=== PATIENT | female | born 1950 | race Caucasian/White ===

== ENCOUNTER → 2017-07-01 | Emergency (ER) | payer MEDICARE, BC ==
[~2017-07-01] VITALS: Ht 167.6 cm; Wt 161.0 kg
[~2017-07-01] MED LIST: ALBU8.5H8 INH; ASPI81TA30 PO; CYCL-1 PO; FAMO20TA8 PO; FOSI40TA2 PO; FURO-149 PO; LACT1CAP26 PO; METO-395 PO; POTA10TA19 PO
[2017-07-01 23:34] VITALS: BP 160/79
== END | disposition home or self-care (01) ==
LOC: ER 23:12
DX: J22 Unspecified acute lower respiratory infection (principal); I10 Essential (primary) hypertension; K21.9 Gastro-esophageal reflux disease without esophagitis; Z90.710 Acquired absence of both cervix and uterus; Z90.49 Acquired absence of other specified parts of digestive tract; Z87.891 Personal history of nicotine dependence; Z88.0 Allergy status to penicillin; Z88.2 Allergy status to sulfonamides; Z88.1 Allergy status to other antibiotic agents
CPT/HCPCS: 99284

== ENCOUNTER 2018-03-23 09:30 | Day surgery (SDC) | payer MEDICARE, BC ==
[~2018-03-23 09:30] MED LIST changes: -FOSI40TA2 PO; +FOSI40TA4 PO
== END 2018-03-23 11:51 | disposition home or self-care (01) ==
LOC: WOUND CARE 09:30
PROVIDERS: ATTEND Surgery
DX: I83.022 Varicose veins of left lower extremity with ulcer of calf (principal); L97.221 Non-pressure chronic ulcer of left calf limited to breakdown of skin; I10 Essential (primary) hypertension; K21.9 Gastro-esophageal reflux disease without esophagitis; Z87.891 Personal history of nicotine dependence; Z90.710 Acquired absence of both cervix and uterus
CPT/HCPCS: 11042; A6222; A6021; A6441

== ENCOUNTER 2018-03-30 10:10 | Outpatient (CLI) | payer MEDICARE, BC ==
[~2018-03-30 10:10] MED LIST changes: -ALBU8.5H8 INH; -ASPI81TA30 PO; -CYCL-1 PO; -FAMO20TA8 PO; -FOSI40TA4 PO; +FOSI40TA5 PO; -LACT1CAP26 PO; -POTA10TA19 PO
== END 2018-03-30 12:49 | disposition home or self-care (01) ==
LOC: WOUND CARE 10:10
PROVIDERS: ATTEND Surgery
DX: I83.022 Varicose veins of left lower extremity with ulcer of calf (principal); L97.221 Non-pressure chronic ulcer of left calf limited to breakdown of skin; I10 Essential (primary) hypertension; K21.9 Gastro-esophageal reflux disease without esophagitis; Z87.891 Personal history of nicotine dependence; Z90.710 Acquired absence of both cervix and uterus
CPT/HCPCS: 29581; 93971; A6021; A6206; A6441

== ENCOUNTER 2018-04-06 08:53 | Day surgery (SDC) | payer MEDICARE, BC ==
[2018-04-06] MEDS ORDERED: LIDOcaine/PRILOcaine 5gm cream TP ONE (09:17)
== END 2018-04-06 10:30 | disposition home or self-care (01) ==
LOC: WOUND CARE 08:53
PROVIDERS: ATTEND Surgery
DX: I83.022 Varicose veins of left lower extremity with ulcer of calf (principal); L97.221 Non-pressure chronic ulcer of left calf limited to breakdown of skin; I10 Essential (primary) hypertension; K21.9 Gastro-esophageal reflux disease without esophagitis; Z87.891 Personal history of nicotine dependence; Z90.710 Acquired absence of both cervix and uterus
CPT/HCPCS: 97597; A6021; A6206; A6441

== ENCOUNTER 2018-04-13 09:10 | Day surgery (SDC) | payer MEDICARE, BC ==
--- NOTE | 2018-04-13 11:30 | NUR ---
Patient ambulated with cane from [facility] and was admitted to outpatient wound care for physician visit with Jorge Douglas MD. Dressing removed, wound cleansed and lidocaine applied per order. Patient assessed for changes in conditions, medications and medical history. 1025 - Dr. Douglas at bedside accompanied by RN. Wound assessed, time out performed by MD/RN. Wound debrided as detailed in the physician progress/procedure note. Plan of care discussed with patient. Dressings placed per MD orders. Pt instructed to elevate legs at least 30 minutes 3 times a day or 10 minutes every 4 hours, also instructed check their toes. If they become purplish or blue, cool to the touch, numb or tingly, use a pair of scissors and carefully cut off the dressing. Call the Wound Center for an appointment to have the dressing reapplied. Pt instructed that decreased swelling in the legs and the potential for drainage from the wound may require them to have to schedule visits twice weekly, progressing to weekly as the swelling decreases in their legs. Pt instructed that if dressings become loose, wrinkled or falls down and if they are experiencing any pain or discomfort under their dressing cut the dressing off and call the Wound Center to have it reapplied. Pt instructed that the wrap needs to be kept dry. They may bath at a sink or there are devices designed to keep dressings dry these are available at most drug stores. If they choose to shower with a plastic bag taped over the wrap. Be sure to having another person available for assistance or placing towels on the floor of the shower or tub to eliminate the slick surface can reduce the risk of falls. Patient instructed on the signs and symptoms of infection and to call the Wound Center if any occur or to go to the ED if we are closed: Increased pain in wound Increase in drainage from the wound Redness in the skin surrounding the wound Bleeding from the wound Temperature of 101 or greater Patient instructed that the weight of their body puts a large amount of pressure on their wounds. This pressure keeps the new tissue from growing and inhibits new blood vessels from forming. Explained that, if they continue to bear weight on a body part that has a wound, the time it takes to heal the wound increases, the wound may get worse or the wound may not heal at all. Patient verbalized understanding of all discharge instructions and plan of care and ambulated with cane out to [facility] in stable condition with no sign or symptom of distress at time of discharge.
== END 2018-04-13 11:23 | disposition home or self-care (01) ==
LOC: WOUND CARE 09:10
PROVIDERS: ATTEND Surgery
DX: L97.221 Non-pressure chronic ulcer of left calf limited to breakdown of skin (principal); I83.022 Varicose veins of left lower extremity with ulcer of calf; M79.662 Pain in left lower leg; I10 Essential (primary) hypertension; K21.9 Gastro-esophageal reflux disease without esophagitis; Z87.891 Personal history of nicotine dependence; Z90.710 Acquired absence of both cervix and uterus
CPT/HCPCS: 97597; A6021; A6206; A6441

== ENCOUNTER 2018-04-20 09:18 | Day surgery (SDC) | payer MEDICARE, BC ==
[2018-04-20] MEDS ORDERED: LIDOcaine/PRILOcaine 5gm cream TP ONE (09:54)
--- NOTE | 2018-04-20 11:00 | NUR ---
Patient ambulated with cane from [facility] and was admitted to outpatient wound care for physician visit with Jorge Douglas MD. Dressing removed, wound cleansed and Emla cream applied per order. Patient assessed for changes in conditions, medications and medical history. 1000 - Dr. Douglas at bedside accompanied by RN. Wound assessed, time out performed by MD/RN. Wound debrided and procedure performed as detailed in the physician progress/procedure note. Plan of care discussed with patient. Dressings placed per MD orders. Pt instructed to elevate legs at least 30 minutes 3 times a day or 10 minutes every 4 hours, also instructed check their toes. If they become purplish or blue, cool to the touch, numb or tingly, use a pair of scissors and carefully cut off the dressing. Call the Wound Center for an appointment to have the dressing reapplied. Pt instructed that decreased swelling in the legs and the potential for drainage from the wound may require them to have to schedule visits twice weekly, progressing to weekly as the swelling decreases in their legs. Pt instructed that if dressings become loose, wrinkled or falls down and if they are experiencing any pain or discomfort under their dressing cut the dressing off and call the Wound Center to have it reapplied. Pt instructed that the wrap needs to be kept dry. They may bath at a sink or there are devices designed to keep dressings dry these are available at most drug stores. If they choose to shower with a plastic bag taped over the wrap. Be sure to having another person available for assistance or placing towels on the floor of the shower or tub to eliminate the slick surface can reduce the risk of falls. Patient instructed on the signs and symptoms of infection and to call the Wound Center if any occur or to go to the ED if we are closed: Increased pain in wound Increase in drainage from the wound Redness in the skin surrounding the wound Bleeding from the wound Temperature of 101 or greater Patient instructed that the weight of their body puts a large amount of pressure on their wounds. This pressure keeps the new tissue from growing and inhibits new blood vessels from forming. Explained that, if they continue to bear weight on a body part that has a wound, the time it takes to heal the wound increases, the wound may get worse or the wound may not heal at all. Patient verbalized understanding of all discharge instructions and plan of care and ambulated with cane out to lobby in stable condition with no sign or symptom of distress at time of discharge.
== END 2018-04-20 10:49 | disposition home or self-care (01) ==
LOC: WOUND CARE 09:18
PROVIDERS: ATTEND Surgery
DX: L97.221 Non-pressure chronic ulcer of left calf limited to breakdown of skin (principal); I83.022 Varicose veins of left lower extremity with ulcer of calf; I10 Essential (primary) hypertension; K21.9 Gastro-esophageal reflux disease without esophagitis; Z87.891 Personal history of nicotine dependence; Z90.710 Acquired absence of both cervix and uterus
CPT/HCPCS: 15271; A6209; A6222; Q4186; A6250; A6441

== ENCOUNTER 2018-04-28 16:56 | Emergency (ER) | payer MEDICARE, BC ==
[~2018-04-28] VITALS: Ht 165.1 cm; Wt 170.0 kg
[2018-04-28 17:41] VITALS: BP 164/73
[2018-04-28] MEDS ORDERED: BENZ-16 PO (19:25)
[2018-04-28] MEDS ORDERED: ROBCFL PO (19:25)
[2018-04-28] MEDS ORDERED: ALBU8.5H8 IH (19:26)
== END 2018-04-28 19:38 | disposition home or self-care (01) ==
LOC: ER 16:57
DX: J06.9 Acute upper respiratory infection, unspecified (principal); I10 Essential (primary) hypertension; K21.9 Gastro-esophageal reflux disease without esophagitis; Z88.1 Allergy status to other antibiotic agents; Z88.0 Allergy status to penicillin; Z88.2 Allergy status to sulfonamides; Z88.8 Allergy status to other drugs, medicaments and biological substances; Z79.899 Other long term (current) drug therapy; Z90.49 Acquired absence of other specified parts of digestive tract; Z90.710 Acquired absence of both cervix and uterus; Z87.891 Personal history of nicotine dependence
CPT/HCPCS: 99283

== ENCOUNTER 2018-05-04 10:14 | Day surgery (SDC) | payer MEDICARE, BC ==
[~2018-05-04 10:14] MED LIST changes: +ALBU8.5H8 IH; +BENZ-16 PO; +ROBCFL PO
[2018-05-04] MEDS ORDERED: LIDOcaine/PRILOcaine 5gm cream TP ONE (11:38)
--- NOTE | 2018-05-04 12:30 | NUR ---
Patient ambulated with cane from [facility] and was admitted to outpatient wound care for physician visit with Jorge Douglas MD. Dressing removed, wound cleansed and Emla cream applied per order. Patient assessed for changes in conditions, medications and medical history. 1140 - Dr. Douglas at bedside accompanied by RN. Wound assessed, time out performed by MD/RN. Wound debrided as detailed in the physician progress/procedure note. Plan of care discussed with patient. Dressings placed per MD orders. Pt instructed to elevate legs at least 30 minutes 3 times a day or 10 minutes every 4 hours, also instructed check their toes. If they become purplish or blue, cool to the touch, numb or tingly, use a pair of scissors and carefully cut off the dressing. Call the Wound Center for an appointment to have the dressing reapplied. Pt instructed that decreased swelling in the legs and the potential for drainage from the wound may require them to have to schedule visits twice weekly, progressing to weekly as the swelling decreases in their legs. Pt instructed that if dressings become loose, wrinkled or falls down and if they are experiencing any pain or discomfort under their dressing cut the dressing off and call the Wound Center to have it reapplied. Pt instructed that the wrap needs to be kept dry. They may bath at a sink or there are devices designed to keep dressings dry these are available at most drug stores. If they choose to shower with a plastic bag taped over the wrap. Be sure to having another person available for assistance or placing towels on the floor of the shower or tub to eliminate the slick surface can reduce the risk of falls. Patient instructed on the signs and symptoms of infection and to call the Wound Center if any occur or to go to the ED if we are closed: Increased pain in wound Increase in drainage from the wound Redness in the skin surrounding the wound Bleeding from the wound Temperature of 101 or greater Patient instructed that the weight of their body puts a large amount of pressure on their wounds. This pressure keeps the new tissue from growing and inhibits new blood vessels from forming. Explained that, if they continue to bear weight on a body part that has a wound, the time it takes to heal the wound increases, the wound may get worse or the wound may not heal at all. Patient verbalized understanding of all discharge instructions and plan of care and ambulated with cane out to [facility] in stable condition with no sign or symptom of distress at time of discharge. Daughter remained in lobby to take patient home after appointment.
== END 2018-05-04 12:22 | disposition home or self-care (01) ==
LOC: WOUND CARE 10:14
PROVIDERS: ATTEND Surgery
DX: I83.022 Varicose veins of left lower extremity with ulcer of calf (principal); L97.221 Non-pressure chronic ulcer of left calf limited to breakdown of skin; M79.662 Pain in left lower leg; I10 Essential (primary) hypertension; K21.9 Gastro-esophageal reflux disease without esophagitis; Z87.891 Personal history of nicotine dependence; Z90.710 Acquired absence of both cervix and uterus
CPT/HCPCS: 17250; A6021; A6206; A6441

== ENCOUNTER 2018-05-11 09:23 | Day surgery (SDC) | payer MEDICARE, BC ==
[~2018-05-11 09:23] MED LIST changes: -BENZ-16 PO
--- NOTE | 2018-05-11 15:21 | NUR ---
Patient ambulated independently from [facility] and was admitted to outpatient wound care for physician visit. Dressing removed and wound cleansed. Patient assessed and medications and medical history reviewed. Patient showed no s/s of distress at time of assessment. Dr. Douglas at bedside accompanied by RN. Wound assessed, time out performed by MD/RN. Wound debrided as detailed in the physician progress/procedure note. Plan of care discussed with patient. Dressings placed per MD orders. Patient instructed on the signs and symptoms of infection and to call the Wound Center if any occur or to go to the ED if we are closed: Increased pain in wound Increase in drainage from the wound Redness in the skin surrounding the wound Bleeding from the wound Temperature of 101 or greater Pt instructed to elevate legs at least 30 minutes 3 times a day or 10 minutes every 4 hours, also instructed check their toes. If they become purplish or blue, cool to the touch, numb or tingly, use a pair of scissors and carefully cut off the dressing. Call the Wound Center for an appointment to have the dressing reapplied. Pt instructed that decreased swelling in the legs and the potential for drainage from the wound may require them to have to schedule visits twice weekly, progressing to weekly as the swelling decreases in their legs. Pt instructed that if dressings become loose, wrinkled or falls down and if they are experiencing any pain or discomfort under their dressing cut the dressing off and call the Wound Center to have it reapplied. Pt instructed that the wrap needs to be kept dry. They may bath at a sink or there are devices designed to keep dressings dry these are available at most drug stores. If they choose to shower with a plastic bag taped over the wrap. Be sure to having another person available for assistance or placing towels on the floor of the shower or tub to eliminate the slick surface can reduce the risk of falls. Patient verbalized understanding of all discharge instructions and plan of care and ambulated independently out to [facility] in stable condition with no complaints. Addendum: 05/11/18 at 1523 by Beronica Mccoy RN Amended: Links added.
== END 2018-05-11 10:25 | disposition home or self-care (01) ==
LOC: WOUND CARE 09:23
PROVIDERS: ATTEND Surgery
DX: I83.022 Varicose veins of left lower extremity with ulcer of calf (principal); L97.221 Non-pressure chronic ulcer of left calf limited to breakdown of skin; I87.2 Venous insufficiency (chronic) (peripheral); I10 Essential (primary) hypertension; K21.9 Gastro-esophageal reflux disease without esophagitis; M19.90 Unspecified osteoarthritis, unspecified site; E66.9 Obesity, unspecified; Z87.891 Personal history of nicotine dependence; Z90.710 Acquired absence of both cervix and uterus; Z90.49 Acquired absence of other specified parts of digestive tract; Z79.899 Other long term (current) drug therapy; Z87.440 Personal history of urinary (tract) infections
CPT/HCPCS: 17250; 29581; A6206; A6441

== ENCOUNTER 2018-05-18 09:43 | Outpatient (CLI) | payer MEDICARE, BC ==
[2018-05-18] MEDS ORDERED: hydrocortisone 1% cream 28gm TP ONE (10:33)
--- NOTE | 2018-05-18 13:52 | NUR ---
Patient ambulated independently from [facility] and was admitted to outpatient wound care for physician visit with Jorge Douglas MD. Dressing removed, wound cleansed and lidocaine applied per order. Patient assessed for changes in conditions, medications and medical history. Dr. Douglas at bedside accompanied by RN. Wound assessed, time out performed by MD/RN. Wound debrided as detailed in the physician progress/procedure note. Plan of care discussed with patient. Dressings placed per MD orders. Patient instructed on the signs and symptoms of infection and to call the Wound Center if any occur or to go to the ED if we are closed: Increased pain in wound Increase in drainage from the wound Redness in the skin surrounding the wound Bleeding from the wound Temperature of 101 or greater Pt instructed to elevate legs at least 30 minutes 3 times a day or 10 minutes every 4 hours, also instructed check their toes. If they become purplish or blue, cool to the touch, numb or tingly, use a pair of scissors and carefully cut off the dressing. Call the Wound Center for an appointment to have the dressing reapplied. Pt instructed that decreased swelling in the legs and the potential for drainage from the wound may require them to have to schedule visits twice weekly, progressing to weekly as the swelling decreases in their legs. Pt instructed that if dressings become loose, wrinkled or falls down and if they are experiencing any pain or discomfort under their dressing cut the dressing off and call the Wound Center to have it reapplied. Pt instructed that the wrap needs to be kept dry. They may bath at a sink or there are devices designed to keep dressings dry these are available at most drug stores. If they choose to shower with a plastic bag taped over the wrap. Be sure to having another person available for assistance or placing towels on the floor of the shower or tub to eliminate the slick surface can reduce the risk of falls. Patient instructed that the weight of their body puts a large amount of pressure on their wounds. This pressure keeps the new tissue from growing and inhibits new blood vessels from forming. Explained that, if they continue to bear weight on a body part that has a wound, the time it takes to heal the wound increases, the wound may get worse or the wound may not heal at all. Patient verbalized understanding of all discharge instructions and plan of care and ambulated independently out to [facility] in stable condition with no sign or symptom of distress at time of discharge. Addendum: 05/18/18 at 1354 by Beronica Mccoy RN Amended: Links added.
== END 2018-05-18 10:51 | disposition home or self-care (01) ==
LOC: WOUND CARE 09:43
PROVIDERS: ATTEND Surgery
DX: I83.022 Varicose veins of left lower extremity with ulcer of calf (principal); L97.221 Non-pressure chronic ulcer of left calf limited to breakdown of skin; I87.2 Venous insufficiency (chronic) (peripheral); I10 Essential (primary) hypertension; K21.9 Gastro-esophageal reflux disease without esophagitis; M19.90 Unspecified osteoarthritis, unspecified site; E66.9 Obesity, unspecified; Z87.891 Personal history of nicotine dependence; Z90.710 Acquired absence of both cervix and uterus; Z90.49 Acquired absence of other specified parts of digestive tract; Z79.899 Other long term (current) drug therapy; Z87.440 Personal history of urinary (tract) infections
CPT/HCPCS: 29581; A4421; A6021; A6206

== ENCOUNTER 2018-05-25 09:15 | Day surgery (SDC) | payer MEDICARE, BC ==
--- NOTE | 2018-05-25 11:00 | NUR ---
Patient ambulated with walker from [facility] and was admitted to outpatient wound care for physician visit with Jorge Douglas MD. Dressing removed, wound cleansed. Patient assessed for changes in conditions, medications and medical history. 1000 - Dr. Douglas at bedside accompanied by RN. Wound assessed, time out performed by MD/RN. Wound debrided as detailed in the physician progress/procedure note. Plan of care discussed with patient. Dressings placed per MD orders. Patient is discharged from the wound clinic to follow up on an as needed basis. Pt instructed to elevate legs at least 30 minutes 3 times a day or 10 minutes every 4 hours, also instructed check their toes. If they become purplish or blue, cool to the touch, numb or tingly, use a pair of scissors and carefully cut off the dressing. Call the Wound Center for an appointment to have the dressing reapplied. Pt instructed that decreased swelling in the legs and the potential for drainage from the wound may require them to have to schedule visits twice weekly, progressing to weekly as the swelling decreases in their legs. Pt instructed that if dressings become loose, wrinkled or falls down and if they are experiencing any pain or discomfort under their dressing cut the dressing off and call the Wound Center to have it reapplied. Pt instructed that the wrap needs to be kept dry. They may bath at a sink or there are devices designed to keep dressings dry these are available at most drug stores. If they choose to shower with a plastic bag taped over the wrap. Be sure to having another person available for assistance or placing towels on the floor of the shower or tub to eliminate the slick surface can reduce the risk of falls. Patient instructed on the signs and symptoms of infection and to call the Wound Center if any occur or to go to the ED if we are closed: Increased pain in wound Increase in drainage from the wound Redness in the skin surrounding the wound Bleeding from the wound Temperature of 101 or greater Patient instructed that the weight of their body puts a large amount of pressure on their wounds. This pressure keeps the new tissue from growing and inhibits new blood vessels from forming. Explained that, if they continue to bear weight on a body part that has a wound, the time it takes to heal the wound increases, the wound may get worse or the wound may not heal at all. Patient verbalized understanding of all discharge instructions and plan of care and ambulated with walker out to [facility] in stable condition with no sign or symptom of distress at time of discharge.
== END 2018-05-25 10:35 | disposition home or self-care (01) ==
LOC: WOUND CARE 09:15
PROVIDERS: ATTEND Surgery
DX: I83.022 Varicose veins of left lower extremity with ulcer of calf (principal); L97.221 Non-pressure chronic ulcer of left calf limited to breakdown of skin; I87.2 Venous insufficiency (chronic) (peripheral); I10 Essential (primary) hypertension; K21.9 Gastro-esophageal reflux disease without esophagitis; M19.90 Unspecified osteoarthritis, unspecified site; E66.9 Obesity, unspecified; Z87.891 Personal history of nicotine dependence; Z90.710 Acquired absence of both cervix and uterus; Z90.49 Acquired absence of other specified parts of digestive tract; Z79.899 Other long term (current) drug therapy; Z87.440 Personal history of urinary (tract) infections
CPT/HCPCS: 17250; 97597; A6021; A6206; A6441

== ENCOUNTER 2018-08-24 14:46 | Emergency (ER) | payer MEDICARE, BC ==
[~2018-08-24] VITALS: Ht 167.6 cm; Wt 166.1 kg
[~2018-08-24 14:46] MED LIST changes: -ROBCFL PO
[2018-08-24 15:28] VITALS: BP 143/83
[2018-08-24] MEDS ORDERED: ondansetron 4mg rapidly disintigrating tab PO ONE (16:35)
[2018-08-24 17:05] LABS: CLARITY,URINE SLIGHTLY CLOUDY (Clear); COLOR,URINE YELLOW (Yellow); GLUCOSE, URINE NEGATIVE (Neg); KETONES,URINE NEGATIVE (Neg); LEUKOCYTE ESTERASE ,URINE NEGATIVE (Neg); NITRITES, URINE NEGATIVE (Neg); OCCULT BLOOD,URINE NEGATIVE (Neg); PH,URINE 5.5 (4.8-8.0); PROTEIN,URINE TRACE mg/dl (Neg); UA COLLECTION TYPE CLN CATCH MIDSTREAM; UROBILINOGEN,URINE 0.2 E.U/dL (0.2-1.0)
[2018-08-24 17:09] LABS: BACTERIA,URINE 1+ /HPF (Neg); MUCUS STRANDS MODERATE /LPF (Neg); RBC,URINE NONE SEEN /HPF (0-2); SQUAMOUS EPITHELIAL CELL,UR MANY /LPF (FEW); WBC,URINE 0-4 /HPF (0-4)
[2018-08-24 17:10] LABS: TRANSITIONAL EPI CELLS,URINE FEW /HPF
[2018-08-24] MEDS ORDERED: RANI150T44 PO (17:28)
[2018-08-24] MEDS ORDERED: ONDA4TAB6 PO (17:28)
== END 2018-08-24 17:41 | disposition home or self-care (01) ==
LOC: ER 14:47
DX: K30 Functional dyspepsia (principal); I10 Essential (primary) hypertension; K21.9 Gastro-esophageal reflux disease without esophagitis; M19.90 Unspecified osteoarthritis, unspecified site; Z90.49 Acquired absence of other specified parts of digestive tract; Z90.710 Acquired absence of both cervix and uterus; Z88.1 Allergy status to other antibiotic agents; Z88.0 Allergy status to penicillin; Z88.2 Allergy status to sulfonamides; Z88.8 Allergy status to other drugs, medicaments and biological substances
CPT/HCPCS: 81001; 99283

== ENCOUNTER 2018-09-26 09:00 | Day surgery (SDC) | payer MEDICARE, BC ==
[~2018-09-26 09:00] MED LIST changes: +ONDA4TAB6 PO; +RANI-648 PO
[2018-09-26] MEDS ORDERED: IBUP-24 PO (09:36)
--- NOTE | 2018-09-26 11:00 | NUR ---
Patient ambulated with cane from [facility] and was admitted to outpatient wound care for physician visit with Jorge Douglas MD. Dressing removed, wound cleansed and lidocaine applied per order. Patient assessed for changes in conditions, medications and medical history. 1010 - Dr. Douglas at bedside accompanied by RN. Wound assessed, time out performed by MD/RN. Wound debrided as detailed in the physician progress/procedure note. Plan of care discussed with patient. Dressings placed per MD orders. Pt instructed to elevate legs at least 30 minutes 3 times a day or 10 minutes every 4 hours, also instructed check their toes. If they become purplish or blue, cool to the touch, numb or tingly, use a pair of scissors and carefully cut off the dressing. Call the Wound Center for an appointment to have the dressing reapplied. Pt instructed that decreased swelling in the legs and the potential for drainage from the wound may require them to have to schedule visits twice weekly, progressing to weekly as the swelling decreases in their legs. Pt instructed that if dressings become loose, wrinkled or falls down and if they are experiencing any pain or discomfort under their dressing cut the dressing off and call the Wound Center to have it reapplied. Pt instructed that the wrap needs to be kept dry. They may bath at a sink or there are devices designed to keep dressings dry these are available at most drug stores. If they choose to shower with a plastic bag taped over the wrap. Be sure to having another person available for assistance or placing towels on the floor of the shower or tub to eliminate the slick surface can reduce the risk of falls. Patient instructed on the signs and symptoms of infection and to call the Wound Center if any occur or to go to the ED if we are closed: Increased pain in wound Increase in drainage from the wound Redness in the skin surrounding the wound Bleeding from the wound Temperature of 101 or greater Patient instructed that the weight of their body puts a large amount of pressure on their wounds. This pressure keeps the new tissue from growing and inhibits new blood vessels from forming. Explained that, if they continue to bear weight on a body part that has a wound, the time it takes to heal the wound increases, the wound may get worse or the wound may not heal at all. Patient verbalized understanding of all discharge instructions and plan of care and ambulated with cane out to [facility] in stable condition with no sign or symptom of distress at time of discharge.
== END 2018-09-26 11:05 | disposition home or self-care (01) ==
LOC: WOUND CARE 09:00
PROVIDERS: ATTEND Surgery
DX: I83.022 Varicose veins of left lower extremity with ulcer of calf (principal); L97.222 Non-pressure chronic ulcer of left calf with fat layer exposed; I87.2 Venous insufficiency (chronic) (peripheral); I10 Essential (primary) hypertension; K21.9 Gastro-esophageal reflux disease without esophagitis; M19.90 Unspecified osteoarthritis, unspecified site; E66.9 Obesity, unspecified; Z87.891 Personal history of nicotine dependence; Z90.710 Acquired absence of both cervix and uterus; Z90.49 Acquired absence of other specified parts of digestive tract; Z79.899 Other long term (current) drug therapy; Z87.440 Personal history of urinary (tract) infections
CPT/HCPCS: A6021; A6206; A6441

== ENCOUNTER 2018-10-02 09:05 | Day surgery (SDC) | payer MEDICARE, BC ==
[~2018-10-02 09:05] MED LIST changes: +IBUP-24 PO
[2018-10-02] MEDS ORDERED: LIDOcaine/PRILOcaine 5gm cream TP ONE (09:40)
--- NOTE | 2018-10-02 11:00 | NUR ---
Patient ambulated from [facility] and was admitted to outpatient wound care for physician visit with Jorge Douglas MD. Dressing removed, wound cleansed and Emla cream applied per order. Patient assessed for changes in conditions, medications and medical history. 1032 - Dr. Douglas at bedside accompanied by RN. Wound assessed, time out performed by MD/RN. Wound debrided as detailed in the physician progress/procedure note. Plan of care discussed with patient. Dressings placed per MD orders. Pt instructed to elevate legs at least 30 minutes 3 times a day or 10 minutes every 4 hours, also instructed check their toes. If they become purplish or blue, cool to the touch, numb or tingly, use a pair of scissors and carefully cut off the dressing. Call the Wound Center for an appointment to have the dressing reapplied. Pt instructed that decreased swelling in the legs and the potential for drainage from the wound may require them to have to schedule visits twice weekly, progressing to weekly as the swelling decreases in their legs. Pt instructed that if dressings become loose, wrinkled or falls down and if they are experiencing any pain or discomfort under their dressing cut the dressing off and call the Wound Center to have it reapplied. Pt instructed that the wrap needs to be kept dry. They may bath at a sink or there are devices designed to keep dressings dry these are available at most drug stores. If they choose to shower with a plastic bag taped over the wrap. Be sure to having another person available for assistance or placing towels on the floor of the shower or tub to eliminate the slick surface can reduce the risk of falls. Patient instructed on the signs and symptoms of infection and to call the Wound Center if any occur or to go to the ED if we are closed: Increased pain in wound Increase in drainage from the wound Redness in the skin surrounding the wound Bleeding from the wound Temperature of 101 or greater Patient instructed that the weight of their body puts a large amount of pressure on their wounds. This pressure keeps the new tissue from growing and inhibits new blood vessels from forming. Explained that, if they continue to bear weight on a body part that has a wound, the time it takes to heal the wound increases, the wound may get worse or the wound may not heal at all. Patient verbalized understanding of all discharge instructions and plan of care and ambulated out to [facility] in stable condition with no sign or symptom of distress at time of discharge.
== END 2018-10-02 10:55 | disposition home or self-care (01) ==
LOC: WOUND CARE 09:05
PROVIDERS: ATTEND Surgery
DX: I83.022 Varicose veins of left lower extremity with ulcer of calf (principal); L97.222 Non-pressure chronic ulcer of left calf with fat layer exposed; I87.2 Venous insufficiency (chronic) (peripheral); I10 Essential (primary) hypertension; K21.9 Gastro-esophageal reflux disease without esophagitis; M19.90 Unspecified osteoarthritis, unspecified site; E66.9 Obesity, unspecified; Z87.891 Personal history of nicotine dependence; Z90.710 Acquired absence of both cervix and uterus; Z90.49 Acquired absence of other specified parts of digestive tract; Z79.899 Other long term (current) drug therapy; Z87.440 Personal history of urinary (tract) infections
CPT/HCPCS: 97597; A6021; A6206; A6441

== ENCOUNTER 2018-10-23 09:40 | Day surgery (SDC) | payer MEDICARE, BC ==
--- NOTE | 2018-10-23 11:15 | NUR ---
Patient ambulated with cane from [facility] and was admitted to outpatient wound care for physician visit with Jorge Douglas MD. Dressing removed, wound cleansed and lidocaine applied per order. Patient assessed for changes in conditions, medications and medical history. 1030 - Dr. Douglas at bedside accompanied by RN. Wound assessed, time out performed by MD/RN. Wound debrided as detailed in the physician progress/procedure note. Plan of care discussed with patient. Dressings placed per MD orders. Pt instructed to elevate legs at least 30 minutes 3 times a day or 10 minutes every 4 hours, also instructed check their toes. If they become purplish or blue, cool to the touch, numb or tingly, use a pair of scissors and carefully cut off the dressing. Call the Wound Center for an appointment to have the dressing reapplied. Pt instructed that decreased swelling in the legs and the potential for drainage from the wound may require them to have to schedule visits twice weekly, progressing to weekly as the swelling decreases in their legs. Pt instructed that if dressings become loose, wrinkled or falls down and if they are experiencing any pain or discomfort under their dressing cut the dressing off and call the Wound Center to have it reapplied. Pt instructed that the wrap needs to be kept dry. They may bath at a sink or there are devices designed to keep dressings dry these are available at most drug stores. If they choose to shower with a plastic bag taped over the wrap. Be sure to having another person available for assistance or placing towels on the floor of the shower or tub to eliminate the slick surface can reduce the risk of falls. Patient instructed on the signs and symptoms of infection and to call the Wound Center if any occur or to go to the ED if we are closed: Increased pain in wound Increase in drainage from the wound Redness in the skin surrounding the wound Bleeding from the wound Temperature of 101 or greater Patient instructed that the weight of their body puts a large amount of pressure on their wounds. This pressure keeps the new tissue from growing and inhibits new blood vessels from forming. Explained that, if they continue to bear weight on a body part that has a wound, the time it takes to heal the wound increases, the wound may get worse or the wound may not heal at all. Patient verbalized understanding of all discharge instructions and plan of care and ambulated with cane out to [facility] in stable condition with no sign or symptom of distress at time of discharge.
== END 2018-10-23 10:55 | disposition home or self-care (01) ==
LOC: WOUND CARE 09:40
PROVIDERS: ATTEND Surgery
DX: I83.022 Varicose veins of left lower extremity with ulcer of calf (principal); L97.222 Non-pressure chronic ulcer of left calf with fat layer exposed; I87.2 Venous insufficiency (chronic) (peripheral); I10 Essential (primary) hypertension; K21.9 Gastro-esophageal reflux disease without esophagitis; M19.90 Unspecified osteoarthritis, unspecified site; E66.9 Obesity, unspecified; Z87.891 Personal history of nicotine dependence; Z90.710 Acquired absence of both cervix and uterus; Z90.49 Acquired absence of other specified parts of digestive tract; Z79.899 Other long term (current) drug therapy; Z87.440 Personal history of urinary (tract) infections
CPT/HCPCS: 97597; A6021; A6206; A6441

== ENCOUNTER 2018-10-30 09:38 | Day surgery (SDC) | payer MEDICARE, BC ==
--- NOTE | 2018-10-30 12:48 | NUR ---
Patient ambulated independently from [facility] and was admitted to outpatient wound care for physician visit with Jorge Douglas MD. Dressing removed, wound cleansed. Patient assessed for changes in conditions, medications and medical history. 1015 - Dr. Douglas at bedside accompanied by RN. Wound assessed, time out performed by MD/RN. Wound debrided and procedure performed as detailed in the physician progress/procedure note. Plan of care discussed with patient. Dressings placed per MD orders. Patient instructed on the signs and symptoms of infection and to call the Wound Center if any occur or to go to the ED if we are closed: Increased pain in wound Increase in drainage from the wound Redness in the skin surrounding the wound Bleeding from the wound Temperature of 101 or greater Patient instructed that the weight of their body puts a large amount of pressure on their wounds. This pressure keeps the new tissue from growing and inhibits new blood vessels from forming. Explained that, if they continue to bear weight on a body part that has a wound, the time it takes to heal the wound increases, the wound may get worse or the wound may not heal at all. Pt instructed to elevate legs at least 30 minutes 3 times a day or 10 minutes every 4 hours, also instructed check their toes. If they become purplish or blue, cool to the touch, numb or tingly, use a pair of scissors and carefully cut off the dressing. Call the Wound Center for an appointment to have the dressing reapplied. Pt instructed that decreased swelling in the legs and the potential for drainage from the wound may require them to have to schedule visits twice weekly, progressing to weekly as the swelling decreases in their legs. Pt instructed that if dressings become loose, wrinkled or falls down and if they are experiencing any pain or discomfort under their dressing cut the dressing off and call the Wound Center to have it reapplied. Pt instructed that the wrap needs to be kept dry. They may bath at a sink or there are devices designed to keep dressings dry these are available at most drug stores. If they choose to shower with a plastic bag taped over the wrap. Be sure to having another person available for assistance or placing towels on the floor of the shower or tub to eliminate the slick surface can reduce the risk of falls. Patient verbalized understanding of all discharge instructions and plan of care and ambulated independently out to [facility] in stable condition with no sign or symptom of distress at time of discharge.
== END 2018-10-30 10:42 | disposition home or self-care (01) ==
LOC: WOUND CARE 09:38
PROVIDERS: ATTEND Surgery
DX: I83.022 Varicose veins of left lower extremity with ulcer of calf (principal); L97.222 Non-pressure chronic ulcer of left calf with fat layer exposed; I87.2 Venous insufficiency (chronic) (peripheral); I10 Essential (primary) hypertension; K21.9 Gastro-esophageal reflux disease without esophagitis; M19.90 Unspecified osteoarthritis, unspecified site; E66.9 Obesity, unspecified; Z87.891 Personal history of nicotine dependence; Z90.710 Acquired absence of both cervix and uterus; Z90.49 Acquired absence of other specified parts of digestive tract; Z79.899 Other long term (current) drug therapy; Z87.440 Personal history of urinary (tract) infections
CPT/HCPCS: 15271; A6222; Q4186; A4663; A6250; A6441

== ENCOUNTER 2018-11-06 09:25 | Outpatient (CLI) | payer MEDICARE, BC ==
--- NOTE | 2018-11-06 10:56 | NUR ---
Patient ambulated independently from [facility] and was admitted to outpatient wound care for physician visit. Dressings removed, wound cleansed. Patient assessment completed with review of patient's medical history and current medications. 1025-Dr. Douglas at bedside accompanied by RN. Wound assessed, time-out performed by MD/RN. Wound debrided as detailed in the physician progress/procedure note. Plan of care discussed with patient. Dressings placed per MD orders. Patient instructed on the signs and symptoms of infection and to call the Wound Center if any occur or to go to the ED if we are closed: Increased pain in the wound Increase in drainage from the wound Redness in the skin surrounding the wound Bleeding from the wound Temperature of 101F or greater Patient instructed that the weight of their body puts a large amount of pressure on their wounds. This pressure keeps the new tissue from growing and inhibits new blood vessels from forming. Explained that, if they continue to bear weight on a body part that has a wound, the time it takes to heal the wound increases, the wound may get worse, or the wound may not heal at all. Patient verbalized understanding of all discharge instructions and plan of care. Patient ambulated independently out to [facility] in stable condition with no signs or symptoms of distress at time of discharge.
== END 2018-11-06 10:56 | disposition home or self-care (01) ==
LOC: WOUND CARE 09:25 → EDSTATUS 09:30 → WOUND CARE 10:56
PROVIDERS: ATTEND Surgery
DX: I83.022 Varicose veins of left lower extremity with ulcer of calf (principal); L97.222 Non-pressure chronic ulcer of left calf with fat layer exposed; I87.2 Venous insufficiency (chronic) (peripheral); I10 Essential (primary) hypertension; K21.9 Gastro-esophageal reflux disease without esophagitis; M19.90 Unspecified osteoarthritis, unspecified site; E66.9 Obesity, unspecified; Z87.891 Personal history of nicotine dependence; Z90.710 Acquired absence of both cervix and uterus; Z90.49 Acquired absence of other specified parts of digestive tract; Z79.899 Other long term (current) drug therapy; Z87.440 Personal history of urinary (tract) infections
CPT/HCPCS: 29581; A6222; G0463; A4663; A6441

== ENCOUNTER 2018-11-13 09:25 | Outpatient (CLI) | payer MEDICARE, BC ==
--- NOTE | 2018-11-13 10:45 | NUR ---
Patient ambulated with cane from [facility] and was admitted to outpatient wound care for physician visit with Jorge Douglas MD. Wound cleansed. Patient assessed for changes in conditions, medications and medical history. 1030 - Dr. Douglas at bedside accompanied by RN. Wound assessed by and is declared healed. Plan of care discussed with patient. No dressings ordered or placed. Patient instructed on the signs and symptoms of infection and to call the Wound Center if any occur or to go to the ED if we are closed: Increased pain in wound Increase in drainage from the wound Redness in the skin surrounding the wound Bleeding from the wound Temperature of 101 or greater Patient instructed that the weight of their body puts a large amount of pressure on their wounds. This pressure keeps the new tissue from growing and inhibits new blood vessels from forming. Explained that, if they continue to bear weight on a body part that has a wound, the time it takes to heal the wound increases, the wound may get worse or the wound may not heal at all. Patient verbalized understanding of all discharge instructions and plan of care and ambulated with cane out to [facility] in stable condition with no sign or symptom of distress at time of discharge.
== END 2018-11-13 10:40 | disposition home or self-care (01) ==
LOC: WOUND CARE 09:25 → EDSTATUS 09:30 → WOUND CARE 10:40
PROVIDERS: ATTEND Surgery
DX: I83.022 Varicose veins of left lower extremity with ulcer of calf (principal); L97.222 Non-pressure chronic ulcer of left calf with fat layer exposed; I87.2 Venous insufficiency (chronic) (peripheral); I10 Essential (primary) hypertension; K21.9 Gastro-esophageal reflux disease without esophagitis; M19.90 Unspecified osteoarthritis, unspecified site; E66.9 Obesity, unspecified; Z87.891 Personal history of nicotine dependence; Z90.710 Acquired absence of both cervix and uterus; Z90.49 Acquired absence of other specified parts of digestive tract; Z79.899 Other long term (current) drug therapy; Z87.440 Personal history of urinary (tract) infections
CPT/HCPCS: A4663; G0463

== ENCOUNTER 2019-12-06 04:09 | Emergency (ER) | payer MEDICARE, BC ==
[~2019-12-06] VITALS: Ht 167.6 cm; Wt 160.5 kg
[2019-12-06] MEDS ORDERED: diphenhydrAMINE 50 mg/ml inj IV ONE (04:30)
[2019-12-06] MEDS ORDERED: metoclopramide 5 mg/ml inj IV ONE (04:30)
[2019-12-06] MEDS ORDERED: normal saline 1000ML IV soln IVB ONE ×2 (04:30)
[2019-12-06 04:42] LABS: BASOPHILS # (AUTO) 0.1 X10'3 (0-0.2); BASOPHILS % (AUTO) 0.9 % (0-1); EOSINOPHILS % (AUTO) 0.3 % (0-6); HEMATOCRIT 40.6 % (35.0-45.0); HEMOGLOBIN 13.3 g/dl (12.0-16.0); LYMPHOCYTES # (AUTO) 1.1 X10'3 (1.1-4.8); LYMPHOCYTES % (AUTO) 8.4 % (21-51); MEAN CORPUSCULAR HGB CONC 32.9 g/dL (33.0-36.5); MEAN CORPUSCULAR VOLUME 88.2 FL (78-98); MEAN PLATELET VOLUME 7.7 FL (7.4-10.4); MONOCYTES # (AUTO) 0.8 X10'3 (0-0.9); MONOCYTES % (AUTO) 5.9 % (2-12); NEUTROPHILS # (AUTO) 11.4 X10'3 (1.8-7.7); NEUTROPHILS % (AUTO) 84.5 % (42-75); PLATELET COUNT 357 X10'3 (140-440); RED CELL DISTRIBUTION WIDTH 13.9 % (11.5-14.5); WHITE BLOOD COUNT 13.5 X10'3 (4.5-11.0)
[2019-12-06 04:54] LABS: ALANINE AMINOTRANSFERASE 17 U/L (12-78); ALBUMIN 3.5 G/DL (3.4-5.0); ALBUMIN/GLOBULIN RATIO 0.8 (1.1-1.5); ALKALINE PHOSPHATASE 69 IU/L (46-116); ANION GAP 10 (8-16); ASPARTATE AMINO TRANSFERASE 21 U/L (10-37); BILIRUBIN,TOTAL 0.8 MG/DL (0.1-1.0); BLOOD UREA NITROGEN 17 MG/DL (7-18); BUN/CREATININE RATIO 14.8 (6.6-38.0); CALCIUM 9.2 MG/DL (8.5-10.1); CHLORIDE 101 MMOL/L (99-107); CREATININE 1.15 MG/DL (0.40-0.90); GLUCOSE 127 MG/DL (70-104); LIPASE 123 U/L (73-393); SODIUM 137 MMOL/L (135-145); TOTAL PROTEIN 8.1 G/DL (6.4-8.2); eGFR 47 ML/MIN
[2019-12-06 05:03] LABS: CLARITY,URINE TURBID (Clear); GLUCOSE, URINE NEGATIVE (Neg); KETONES,URINE TRACE mg/dl (Neg); LEUKOCYTE ESTERASE ,URINE LARGE (Neg); NITRITES, URINE POSITIVE (Neg); OCCULT BLOOD,URINE SMALL (Neg); PROTEIN,URINE 100 mg/dl (Neg)
[2019-12-06 05:05] LABS: COLOR,URINE DARK YELLOW (Yellow); UA COLLECTION TYPE CLN CATCH MIDSTREAM
[2019-12-06 05:16] LABS: BACTERIA,URINE 4+ /HPF (Neg); MUCUS STRANDS MODERATE /LPF (Neg); SQUAMOUS EPITHELIAL CELL,UR MANY /LPF (FEW); WBC,URINE 50-100 /HPF (0-4); YEAST MODERATE /HPF (NEGATIVE)
[2019-12-06] MEDS ORDERED: CefTRIAXone 2gm/D5W 50ml 50 ML IV ONE (05:25)
[2019-12-06] MEDS ORDERED: ONDA4TAB12 PO (05:33)
[2019-12-06] MEDS ORDERED: CEFD300C3 PO (05:33)
[2019-12-06 06:22] VITALS: BP 151/74
--- NOTE | 2019-12-09 12:53 | NUR ---
Patient called regarding her pharmacy not wanting to fill the antibiotic prescribed on 12/06/19 due to PCN allergy. Spoke with GEORGINA Ryder regarding allergy. [place] ERICKSON stated to call in prescription for cipro 250 mg PO BID x5 days. I spoke with patient who stated that she would like me to call prescription in to [facility] in [place]. Called in prescription to [facility].
== END 2019-12-06 06:37 | disposition home or self-care (01) ==
LOC: ER 04:10
DX: N39.0 Urinary tract infection, site not specified (principal); R11.2 Nausea with vomiting, unspecified; R19.7 Diarrhea, unspecified; I10 Essential (primary) hypertension; K21.9 Gastro-esophageal reflux disease without esophagitis; M19.90 Unspecified osteoarthritis, unspecified site; Z90.49 Acquired absence of other specified parts of digestive tract; Z90.710 Acquired absence of both cervix and uterus; Z88.0 Allergy status to penicillin; Z88.2 Allergy status to sulfonamides; Z79.2 Long term (current) use of antibiotics; Z79.899 Other long term (current) drug therapy
CPT/HCPCS: 36415; 80053; 81001; 83690; 85025; 96361; 96365; 96375; 99284; J0696; J1200; J2765; J7030; 96374

== ENCOUNTER 2019-12-24 10:33 | Emergency (ER) | payer MEDICARE, BC ==
[~2019-12-24] VITALS: Ht 167.6 cm; Wt 160.2 kg
[~2019-12-24 10:33] MED LIST changes: +CEFD300C3 PO; +ONDA4TAB12 PO
[2019-12-24] MEDS ORDERED: ondansetron/PF 4mg/2ml inj IV ONE (11:45)
[2019-12-24] MEDS ORDERED: normal saline 1000ML IV soln IVB ONE (11:45)
[2019-12-24] MEDS ORDERED: famotidine/PF 10 mg/ml inj IV ONE (11:45)
[2019-12-24 12:12] LABS: BASOPHILS # (AUTO) 0.1 X10'3 (0-0.2); BASOPHILS % (AUTO) 0.8 % (0-1); EOSINOPHILS % (AUTO) 0.3 % (0-6); HEMATOCRIT 41.1 % (35.0-45.0); HEMOGLOBIN 13.6 g/dl (12.0-16.0); LYMPHOCYTES # (AUTO) 1.4 X10'3 (1.1-4.8); LYMPHOCYTES % (AUTO) 11.4 % (21-51); MEAN CORPUSCULAR HEMOGLOBIN 28.8 PG (27.0-31.0); MEAN CORPUSCULAR HGB CONC 33.2 g/dL (33.0-36.5); MEAN CORPUSCULAR VOLUME 86.8 FL (78-98); MEAN PLATELET VOLUME 8.1 FL (7.4-10.4); MONOCYTES # (AUTO) 0.9 X10'3 (0-0.9); NEUTROPHILS # (AUTO) 9.9 X10'3 (1.8-7.7); NEUTROPHILS % (AUTO) 80.5 % (42-75); PLATELET COUNT 436 X10'3 (140-440); RED BLOOD COUNT 4.74 X10'6 (4.20-5.60); WHITE BLOOD COUNT 12.3 X10'3 (4.5-11.0)
[2019-12-24 12:14] LABS: CLARITY,URINE CLOUDY (Clear); COLOR,URINE YELLOW (Yellow); GLUCOSE, URINE NEGATIVE (Neg); KETONES,URINE TRACE mg/dl (Neg); LEUKOCYTE ESTERASE ,URINE MODERATE (Neg); NITRITES, URINE NEGATIVE (Neg); OCCULT BLOOD,URINE TRACE-INTACT (Neg); PH,URINE 5.5 (4.8-8.0); PROTEIN,URINE TRACE mg/dl (Neg)
[2019-12-24 12:19] LABS: ALANINE AMINOTRANSFERASE 16 U/L (12-78); ALBUMIN 3.5 G/DL (3.4-5.0); ALBUMIN/GLOBULIN RATIO 0.7 (1.1-1.5); ALKALINE PHOSPHATASE 78 IU/L (46-116); ANION GAP 8 (8-16); ASPARTATE AMINO TRANSFERASE 16 U/L (10-37); BILIRUBIN,TOTAL 0.9 MG/DL (0.1-1.0); BLOOD UREA NITROGEN 17 MG/DL (7-18); CALCIUM 10.1 MG/DL (8.5-10.1); CHLORIDE 102 MMOL/L (99-107); CREATININE 1.06 MG/DL (0.40-0.90); GLUCOSE 117 MG/DL (70-104); LIPASE 95 U/L (73-393); POTASSIUM 4.5 MMOL/L (3.5-5.1); SODIUM 138 MMOL/L (135-145); TOTAL CARBON DIOXIDE 28.2 MMOL/L (24-32); TOTAL PROTEIN 8.7 G/DL (6.4-8.2); eGFR 52 ML/MIN
[2019-12-24 12:33] LABS: UA COLLECTION TYPE CLN CATCH MIDSTREAM
[2019-12-24 12:40] LABS: SQUAMOUS EPITHELIAL CELL,UR MANY /LPF (FEW)
[2019-12-24 12:41] LABS: BACTERIA,URINE 4+ /HPF (Neg)
[2019-12-24] MEDS ORDERED: CEFD300C21 PO (12:44)
[2019-12-24] MEDS ORDERED: ONDA4TAB6 PO (12:44)
[2019-12-24] MEDS ORDERED: CefTRIAXone 2gm/D5W 50ml 50 ML IV ONE (12:50)
[2019-12-24 13:56] VITALS: BP 164/76
== END 2019-12-24 14:17 | disposition home or self-care (01) ==
LOC: ER 10:34
DX: I12.9 Hypertensive chronic kidney disease with stage 1 through stage 4 chronic kidney disease, or unspecified chronic kidney disease (principal); N18.9 Chronic kidney disease, unspecified; N39.0 Urinary tract infection, site not specified; K52.9 Noninfective gastroenteritis and colitis, unspecified; K21.9 Gastro-esophageal reflux disease without esophagitis; M19.90 Unspecified osteoarthritis, unspecified site; Z87.01 Personal history of pneumonia (recurrent); Z87.11 Personal history of peptic ulcer disease; Z87.440 Personal history of urinary (tract) infections; Z90.49 Acquired absence of other specified parts of digestive tract; Z90.710 Acquired absence of both cervix and uterus; Z88.1 Allergy status to other antibiotic agents; Z88.0 Allergy status to penicillin; Z88.2 Allergy status to sulfonamides; Z88.8 Allergy status to other drugs, medicaments and biological substances; Z79.2 Long term (current) use of antibiotics; Z79.899 Other long term (current) drug therapy
CPT/HCPCS: 36415; 80053; 81001; 83690; 85025; 96361; 96365; 96375; 99284; J0696; J2405; J3490; J7030

== ENCOUNTER 2020-04-19 18:53 | Emergency (ER) | payer MEDICARE, BC ==
[~2020-04-19] VITALS: Ht 167.6 cm; Wt 163.1 kg
[2020-04-19 20:02] LABS: CLARITY,URINE SLIGHTLY CLOUDY (Clear); COLOR,URINE YELLOW (Yellow); GLUCOSE, URINE NEGATIVE (Neg); KETONES,URINE TRACE mg/dl (Neg); LEUKOCYTE ESTERASE ,URINE SMALL (Neg); NITRITES, URINE NEGATIVE (Neg); OCCULT BLOOD,URINE NEGATIVE (Neg); PH,URINE 5.5 (4.8-8.0); PROTEIN,URINE 30 mg/dl (Neg); UROBILINOGEN,URINE 0.2 E.U/dL (0.2-1.0)
[2020-04-19 20:09] LABS: BACTERIA,URINE FEW /HPF (Neg); RBC,URINE NONE SEEN /HPF (0-2); SQUAMOUS EPITHELIAL CELL,UR MODERATE /LPF (FEW); UA COLLECTION TYPE CLN CATCH MIDSTREAM
[2020-04-19] MEDS ORDERED: CefTRIAXone/D5W-Rocephin 1gm 50 ML IV ONE (21:10)
[2020-04-19] MEDS ORDERED: ondansetron/PF 4mg/2ml inj IV ONE (21:10)
[2020-04-19] MEDS ORDERED: normal saline 1000ML IV soln IVB ONE (21:10)
[2020-04-19] MEDS ORDERED: CEFD300C3 PO (21:13)
[2020-04-19 21:42] LABS: BASOPHILS # (AUTO) 0.1 X10'3 (0-0.2); BASOPHILS % (AUTO) 0.5 % (0-1); EOSINOPHILS % (AUTO) 0.1 % (0-6); HEMATOCRIT 39.2 % (35.0-45.0); HEMOGLOBIN 13.2 g/dl (12.0-16.0); LYMPHOCYTES # (AUTO) 1.3 X10'3 (1.1-4.8); LYMPHOCYTES % (AUTO) 9.3 % (21-51); MEAN CORPUSCULAR HEMOGLOBIN 29.8 PG (27.0-31.0); MEAN CORPUSCULAR HGB CONC 33.6 g/dL (33.0-36.5); MEAN CORPUSCULAR VOLUME 88.7 FL (78-98); MEAN PLATELET VOLUME 7.6 FL (7.4-10.4); MONOCYTES # (AUTO) 0.9 X10'3 (0-0.9); MONOCYTES % (AUTO) 6.3 % (2-12); NEUTROPHILS # (AUTO) 11.5 X10'3 (1.8-7.7); NEUTROPHILS % (AUTO) 83.8 % (42-75); PLATELET COUNT 333 X10'3 (140-440); RED BLOOD COUNT 4.42 X10'6 (4.20-5.60); RED CELL DISTRIBUTION WIDTH 13.6 % (11.5-14.5); WHITE BLOOD COUNT 13.7 X10'3 (4.5-11.0)
[2020-04-19 21:58] LABS: ALANINE AMINOTRANSFERASE 17 U/L (12-78); ALBUMIN 3.4 G/DL (3.4-5.0); ALBUMIN/GLOBULIN RATIO 0.7 (1.1-1.5); ALKALINE PHOSPHATASE 74 IU/L (46-116); ANION GAP 6 (8-16); ASPARTATE AMINO TRANSFERASE 13 U/L (10-37); BLOOD UREA NITROGEN 13 MG/DL (7-18); BUN/CREATININE RATIO 12.1 (6.6-38.0); CALCIUM 9.5 MG/DL (8.5-10.1); CHLORIDE 105 MMOL/L (99-107); CREATININE 1.07 MG/DL (0.40-0.90); GLUCOSE 120 MG/DL (70-104); LIPASE < 50 U/L (73-393); POTASSIUM 4.5 MMOL/L (3.5-5.1); SODIUM 140 MMOL/L (135-145); TOTAL CARBON DIOXIDE 29.2 MMOL/L (24-32); TOTAL PROTEIN 8.2 G/DL (6.4-8.2); eGFR 51 ML/MIN
[2020-04-19] MEDS ORDERED: ONDA4TAB6 PO (22:57)
[2020-04-19 23:14] VITALS: BP 176/86
== END 2020-04-19 23:16 | disposition home or self-care (01) ==
LOC: ER 18:53
DX: N39.0 Urinary tract infection, site not specified (principal); R10.30 Lower abdominal pain, unspecified; I10 Essential (primary) hypertension; R19.7 Diarrhea, unspecified; R11.10 Vomiting, unspecified; K21.9 Gastro-esophageal reflux disease without esophagitis; M19.90 Unspecified osteoarthritis, unspecified site; Z87.11 Personal history of peptic ulcer disease; Z87.440 Personal history of urinary (tract) infections; Z90.49 Acquired absence of other specified parts of digestive tract; Z90.710 Acquired absence of both cervix and uterus; Z87.01 Personal history of pneumonia (recurrent); Z79.2 Long term (current) use of antibiotics; Z88.1 Allergy status to other antibiotic agents; Z88.0 Allergy status to penicillin; Z88.8 Allergy status to other drugs, medicaments and biological substances; Z79.899 Other long term (current) drug therapy
CPT/HCPCS: 36415; 80053; 81001; 83690; 85025; 87077; 87088; 87186; 96365; 96375; 99284; J0696; J2405; J7030

== ENCOUNTER 2020-05-06 14:35 | Emergency (ER) | payer MEDICARE, BC ==
[~2020-05-06] VITALS: Ht 167.6 cm; Wt 163.6 kg
[2020-05-06 15:52] LABS: BASOPHILS % (AUTO) 0.2 % (0-1); EOSINOPHILS % (AUTO) 0.1 % (0-6); HEMATOCRIT 39.6 % (35.0-45.0); HEMOGLOBIN 12.7 g/dl (12.0-16.0); LYMPHOCYTES # (AUTO) 1.4 X10'3 (1.1-4.8); LYMPHOCYTES % (AUTO) 11.2 % (21-51); MEAN CORPUSCULAR HEMOGLOBIN 28.4 PG (27.0-31.0); MEAN CORPUSCULAR HGB CONC 32.1 g/dL (33.0-36.5); MEAN CORPUSCULAR VOLUME 88.5 FL (78-98); MEAN PLATELET VOLUME 7.7 FL (7.4-10.4); MONOCYTES # (AUTO) 1.1 X10'3 (0-0.9); MONOCYTES % (AUTO) 8.7 % (2-12); NEUTROPHILS # (AUTO) 10.1 X10'3 (1.8-7.7); NEUTROPHILS % (AUTO) 79.8 % (42-75); PLATELET COUNT 358 X10'3 (140-440); RED BLOOD COUNT 4.48 X10'6 (4.20-5.60); RED CELL DISTRIBUTION WIDTH 13.8 % (11.5-14.5); WHITE BLOOD COUNT 12.7 X10'3 (4.5-11.0)
[2020-05-06] MEDS: normal saline 1000ML IV soln IVB ONE (16:15)
[2020-05-06 16:16] LABS: ALANINE AMINOTRANSFERASE 19 U/L (12-78); ALBUMIN 3.3 G/DL (3.4-5.0); ALBUMIN/GLOBULIN RATIO 0.7 (1.1-1.5); ALKALINE PHOSPHATASE 67 IU/L (46-116); ANION GAP 7 (8-16); ASPARTATE AMINO TRANSFERASE 12 U/L (10-37); BILIRUBIN,TOTAL 0.9 MG/DL (0.1-1.0); BLOOD UREA NITROGEN 25 MG/DL (7-18); BUN/CREATININE RATIO 22.7 (6.6-38.0); CALCIUM 9.1 MG/DL (8.5-10.1); CHLORIDE 102 MMOL/L (99-107); GLUCOSE 112 MG/DL (70-104); LIPASE < 50 U/L (73-393); SODIUM 138 MMOL/L (135-145); TOTAL CARBON DIOXIDE 29.3 MMOL/L (24-32); TOTAL PROTEIN 8.1 G/DL (6.4-8.2); eGFR 49 ML/MIN
[2020-05-06 17:42] VITALS: BP 137/79
[2020-05-06 18:14] LABS: CLARITY,URINE SLIGHTLY CLOUDY (Clear); COLOR,URINE YELLOW (Yellow); GLUCOSE, URINE NEGATIVE (Neg); KETONES,URINE NEGATIVE (Neg); LEUKOCYTE ESTERASE ,URINE SMALL (Neg); NITRITES, URINE NEGATIVE (Neg); OCCULT BLOOD,URINE NEGATIVE (Neg); PROTEIN,URINE NEGATIVE (Neg); UROBILINOGEN,URINE 0.2 E.U/dL (0.2-1.0)
[2020-05-06 18:17] LABS: UA COLLECTION TYPE CLN CATCH MIDSTREAM
[2020-05-06 18:21] LABS: BACTERIA,URINE 3+ /HPF (Neg); RBC,URINE NONE SEEN /HPF (0-2); SQUAMOUS EPITHELIAL CELL,UR MANY /LPF (FEW); WBC,URINE 0-4 /HPF (0-4)
[2020-05-06 18:22] LABS: WBC CLUMPS,URINE FEW /HPF (NEGATIVE)
[2020-05-06] MEDS ORDERED: LEVO500T89 PO (19:07)
== END 2020-05-06 19:41 | disposition home or self-care (01) ==
LOC: ER 14:36
DX: N39.0 Urinary tract infection, site not specified (principal); R11.2 Nausea with vomiting, unspecified; I10 Essential (primary) hypertension; K21.9 Gastro-esophageal reflux disease without esophagitis; M19.90 Unspecified osteoarthritis, unspecified site; Z87.01 Personal history of pneumonia (recurrent); Z87.11 Personal history of peptic ulcer disease; Z87.440 Personal history of urinary (tract) infections; Z90.49 Acquired absence of other specified parts of digestive tract; Z90.710 Acquired absence of both cervix and uterus; Z88.0 Allergy status to penicillin; Z88.1 Allergy status to other antibiotic agents; Z88.2 Allergy status to sulfonamides; Z88.8 Allergy status to other drugs, medicaments and biological substances; Z79.899 Other long term (current) drug therapy
CPT/HCPCS: 36415; 80053; 81001; 83690; 85025; 96360; 99284; J7030

== ENCOUNTER 2021-12-03 06:14 | Emergency (ER) | payer MEDICARE, BC ==
[~2021-12-03] VITALS: Ht 165.1 cm; Wt 147.7 kg
[~2021-12-03 06:14] MED LIST changes: +ALBU8.5H17 IH; -ALBU8.5H8 IH; -FOSI40TA5 PO; +FOSI40TA71 PO
[2021-12-03 07:39] LABS: EOSINOPHILS % (AUTO) 0 % (0-6); MEAN CORPUSCULAR VOLUME 84.7 FL (78-98); RED CELL DISTRIBUTION WIDTH 15.9 % (11.5-14.5)
[2021-12-03 07:42] LABS: BASOPHILS % (AUTO) 0.2 % (0-1); HEMATOCRIT 42.1 % (35.0-45.0); HEMOGLOBIN 14.1 g/dl (12.0-16.0); LYMPHOCYTES # (AUTO) 0.7 X10'3 (1.1-4.8); LYMPHOCYTES % (AUTO) 5.5 % (21-51); MEAN CORPUSCULAR HEMOGLOBIN 28.3 PG (27.0-31.0); MEAN CORPUSCULAR HGB CONC 33.4 g/dL (33.0-36.5); MEAN PLATELET VOLUME 8.6 FL (7.4-10.4); MONOCYTES # (AUTO) 1.2 X10'3 (0-0.9); MONOCYTES % (AUTO) 9.3 % (2-12); NEUTROPHILS # (AUTO) 11.4 X10'3 (1.8-7.7); PLATELET COUNT 329 X10'3 (140-440); RED BLOOD COUNT 4.97 X10'6 (4.20-5.60); WHITE BLOOD COUNT 13.4 X10'3 (4.5-11.0)
[2021-12-03 08:00] LABS: ALANINE AMINOTRANSFERASE 24 U/L (12-78); ALBUMIN/GLOBULIN RATIO 0.8 (1.1-1.5); ALKALINE PHOSPHATASE 79 IU/L (46-116); ANION GAP 11 (8-16); ASPARTATE AMINO TRANSFERASE 23 U/L (10-37); BILIRUBIN,TOTAL 1.7 MG/DL (0.1-1.0); BLOOD UREA NITROGEN 41 MG/DL (7-18); BUN/CREATININE RATIO 31.8 (6.6-38.0); CHLORIDE 102 MMOL/L (99-107); CREATININE 1.29 MG/DL (0.40-0.90); GLUCOSE 142 MG/DL (70-104); LIPASE < 50 U/L (73-393); POTASSIUM 4.2 MMOL/L (3.5-5.1); SODIUM 141 MMOL/L (135-145); TOTAL CARBON DIOXIDE 27.6 MMOL/L (24-32); TOTAL PROTEIN 9.2 G/DL (6.4-8.2); eGFR 41 ML/MIN
[2021-12-03 08:13] LABS: CALCIUM 10.5 MG/DL (8.5-10.1)
[2021-12-03 09:14] LABS: TOTAL CELLS COUNTED 100
[2021-12-03 09:15] LABS: ANISOCYTOSIS 1+; PLATELET ESTIMATE NORMAL; TOXIC GRANULATION 1+; TOXIC VACUOLATION FEW
[2021-12-03 10:03] LABS: CLARITY,URINE CLOUDY (Clear); COLOR,URINE YELLOW (Yellow); GLUCOSE, URINE NEGATIVE (Neg); KETONES,URINE NEGATIVE (Neg); LEUKOCYTE ESTERASE ,URINE NEGATIVE (Neg); NITRITES, URINE POSITIVE (Neg); OCCULT BLOOD,URINE NEGATIVE (Neg); PROTEIN,URINE 30 mg/dl (Neg); UROBILINOGEN,URINE 0.2 E.U/dL (0.2-1.0)
[2021-12-03 10:13] LABS: SQUAMOUS EPITHELIAL CELL,UR MANY /LPF (FEW); UA COLLECTION TYPE CLN CATCH MIDSTREAM
[2021-12-03 10:14] LABS: BACTERIA,URINE 2+ /HPF (Neg)
[2021-12-03 10:15] LABS: RBC,URINE 0-2 /HPF (0-2); WBC,URINE 0-4 /HPF (0-4)
[2021-12-03] MEDS ORDERED: morphine 4 MG/ML inj SYRINge IV ONE (10:30)
[2021-12-03] MEDS ORDERED: normal saline 1000ML IV soln IVB ONE (10:30)
[2021-12-03] MEDS ORDERED: ondansetron/PF 4mg/2ml inj IV ONE (10:30)
[2021-12-03 12:28] VITALS: BP 126/65
== END 2021-12-03 12:30 | disposition home or self-care (01) ==
LOC: ER 06:15
DX: R10.13 Epigastric pain (principal); R11.2 Nausea with vomiting, unspecified; K21.9 Gastro-esophageal reflux disease without esophagitis; I10 Essential (primary) hypertension; Z87.19 Personal history of other diseases of the digestive system; Z98.890 Other specified postprocedural states; Z88.1 Allergy status to other antibiotic agents; Z88.0 Allergy status to penicillin; Z88.2 Allergy status to sulfonamides; Z88.8 Allergy status to other drugs, medicaments and biological substances
CPT/HCPCS: 36415; 80053; 81001; 83690; 85007; 85025; 93005; 96361; 96374; 96375; 99285; J2270; J2405; J7030

== ENCOUNTER 2022-06-22 18:16 | Emergency (ER) | payer MEDICARE, BC ==
[~2022-06-22] VITALS: Ht 167.6 cm; Wt 119.5 kg
[2022-06-22 18:51] LABS: BASOPHILS # (AUTO) 0.1 X10'3 (0-0.2); BASOPHILS % (AUTO) 0.3 % (0-1); EOSINOPHILS % (AUTO) 0.2 % (0-6); HEMATOCRIT 39.8 % (35.0-45.0); HEMOGLOBIN 13.5 g/dl (12.0-16.0); LYMPHOCYTES # (AUTO) 1.6 X10'3 (1.1-4.8); LYMPHOCYTES % (AUTO) 9.8 % (21-51); MEAN CORPUSCULAR HEMOGLOBIN 30.7 PG (27.0-31.0); MEAN CORPUSCULAR HGB CONC 33.9 g/dL (33.0-36.5); MEAN CORPUSCULAR VOLUME 90.6 FL (78-98); MEAN PLATELET VOLUME 8.1 FL (7.4-10.4); MONOCYTES # (AUTO) 1.1 X10'3 (0-0.9); NEUTROPHILS # (AUTO) 13.7 X10'3 (1.8-7.7); NEUTROPHILS % (AUTO) 82.7 % (42-75); PLATELET COUNT 349 X10'3 (140-440); RED CELL DISTRIBUTION WIDTH 13.3 % (11.5-14.5); WHITE BLOOD COUNT 16.5 X10'3 (4.5-11.0)
[2022-06-22 19:03] LABS: ALANINE AMINOTRANSFERASE 38 U/L (12-78); ALBUMIN 3.4 G/DL (3.4-5.0); ALBUMIN/GLOBULIN RATIO 0.8 (1.1-1.5); ALKALINE PHOSPHATASE 96 IU/L (46-116); ANION GAP 6 (8-16); ASPARTATE AMINO TRANSFERASE 33 U/L (10-37); BILIRUBIN,TOTAL 0.9 MG/DL (0.1-1.0); BLOOD UREA NITROGEN 30 MG/DL (7-18); BUN/CREATININE RATIO 27.8 (6.6-38.0); CALCIUM 9.9 MG/DL (8.5-10.1); CHLORIDE 97 MMOL/L (99-107); CREATININE 1.08 MG/DL (0.40-0.90); GLUCOSE 127 MG/DL (70-104); LIPASE 140 U/L (73-393); SODIUM 135 MMOL/L (135-145); TOTAL CARBON DIOXIDE 31.9 MMOL/L (24-32); TOTAL PROTEIN 7.7 G/DL (6.4-8.2); eGFR 50 ML/MIN
[2022-06-22 20:50] LABS: CLARITY,URINE SLIGHTLY CLOUDY (Clear); COLOR,URINE YELLOW (Yellow); GLUCOSE, URINE NEGATIVE (Neg); KETONES,URINE 15 mg/dl (Neg); LEUKOCYTE ESTERASE ,URINE SMALL (Neg); NITRITES, URINE NEGATIVE (Neg); OCCULT BLOOD,URINE NEGATIVE (Neg); PH,URINE 5.5 (4.8-8.0); PROTEIN,URINE TRACE mg/dl (Neg); UROBILINOGEN,URINE 0.2 E.U/dL (0.2-1.0)
[2022-06-22 20:55] LABS: UA COLLECTION TYPE OTHER
[2022-06-22 20:56] LABS: SQUAMOUS EPITHELIAL CELL,UR MANY /LPF (FEW)
[2022-06-22 20:58] LABS: BACTERIA,URINE 4+ /HPF (Neg); TRANSITIONAL EPI CELLS,URINE MODERATE /HPF; WBC CLUMPS,URINE MANY /HPF (NEGATIVE)
[2022-06-22 20:59] LABS: WBC,URINE 50-100 /HPF (0-4)
[2022-06-22 22:14] LABS: CLARITY,URINE SLIGHTLY CLOUDY (Clear); COLOR,URINE YELLOW (Yellow); GLUCOSE, URINE NEGATIVE (Neg); KETONES,URINE 15 mg/dl (Neg); LEUKOCYTE ESTERASE ,URINE TRACE (Neg); NITRITES, URINE NEGATIVE (Neg); OCCULT BLOOD,URINE NEGATIVE (Neg); PH,URINE 5.5 (4.8-8.0); PROTEIN,URINE NEGATIVE (Neg); UROBILINOGEN,URINE 0.2 E.U/dL (0.2-1.0)
[2022-06-22 22:21] LABS: UA COLLECTION TYPE STRAIGHT CATH
[2022-06-22 22:22] LABS: SQUAMOUS EPITHELIAL CELL,UR MANY /LPF (FEW)
[2022-06-22 22:23] LABS: BACTERIA,URINE 4+ /HPF (Neg)
[2022-06-22 22:24] LABS: TRANSITIONAL EPI CELLS,URINE FEW /HPF; WBC,URINE 30-50 /HPF (0-4)
[2022-06-22] MEDS ORDERED: cefuroxime axetil 250mg tablet PO ONE (22:25)
[2022-06-22] MEDS ORDERED: CEFD300C3 PO (22:26)
[2022-06-22] MEDS ORDERED: ondansetron 4mg rapidly disintigrating tab PO ONE (22:35)
[2022-06-22 23:37] VITALS: BP 137/75
== END 2022-06-22 23:39 | disposition home or self-care (01) ==
LOC: ER 18:17
DX: N39.0 Urinary tract infection, site not specified (principal); I10 Essential (primary) hypertension; K21.9 Gastro-esophageal reflux disease without esophagitis; Z90.49 Acquired absence of other specified parts of digestive tract; Z88.0 Allergy status to penicillin; Z88.1 Allergy status to other antibiotic agents; Z88.2 Allergy status to sulfonamides; Z79.899 Other long term (current) drug therapy
CPT/HCPCS: 36415; 80053; 81001; 83690; 85025; 87077; 87088; 87186; 99284; A4353

== ENCOUNTER 2023-02-28 10:32 | Day surgery (SDC) | payer MEDICARE, BC ==
[2023-02-24 12:21] LABS: APTT 21 SECONDS (22-32); PROTHROMBIN TIME 10.3 SECONDS (9.0-12.0)
[2023-02-24 12:41] LABS: ALBUMIN 3.6 G/DL (3.4-5.0); ANION GAP 8 (8-16); BLOOD UREA NITROGEN 47 MG/DL (7-18); BUN/CREATININE RATIO 42.7 (10.0-20.0); CALCIUM 9.7 MG/DL (8.5-10.1); CHLORIDE 108 MMOL/L (99-107); CHOL/HDL RATIO 2.8 (0.00-4.99); CHOLESTEROL 184 MG/DL (0-200); GLUCOSE 78 MG/DL (70-104); HDL CHOLESTEROL 65 MG/DL (35-60); LDL CHOLESTEROL 102 MG/DL (50-100); POTASSIUM 5.1 MMOL/L (3.5-5.1); SODIUM 141 MMOL/L (135-145); TOTAL CARBON DIOXIDE 24.6 MMOL/L (24-32); TRIGLYCERIDES 51 MG/DL (20-135); eGFR 49 ML/MIN
[~2023-02-28] VITALS: Ht 167.6 cm; Wt 117.8 kg
[2023-02-28] VITALS (8 sets, daily range): BP systolic 122–155; BP diastolic 62–78; PULSE 59–66; RESP 16; TEMP 97.6; O2SAT 95–99
[2023-02-28] MEDS ORDERED: normal saline 1,000 ML IV SCH (11:05)
[2023-02-28] MEDS ORDERED: LORazepam 0.5 MG tablet PO PRN (11:05)
[2023-02-28] MEDS ORDERED: diphenhydrAMINE 25mg capsule PO PRN (11:05)
[2023-02-28 11:21] LABS: BASOPHILS % (AUTO) 0.8 % (0-1); EOSINOPHILS # (AUTO) 0.1 X10'3 (0-0.9); EOSINOPHILS % (AUTO) 1.8 % (0-6); HEMATOCRIT 31.1 % (35.0-45.0); HEMOGLOBIN 10.3 g/dl (12.0-16.0); LYMPHOCYTES # (AUTO) 1.4 X10'3 (1.1-4.8); LYMPHOCYTES % (AUTO) 23.8 % (21-51); MEAN CORPUSCULAR HEMOGLOBIN 30.2 PG (27.0-31.0); MEAN CORPUSCULAR HGB CONC 33.2 g/dL (33.0-36.5); MEAN CORPUSCULAR VOLUME 91.1 FL (78-98); MEAN PLATELET VOLUME 8.8 FL (7.4-10.4); MONOCYTES # (AUTO) 0.5 X10'3 (0-0.9); MONOCYTES % (AUTO) 9.1 % (2-12); NEUTROPHILS # (AUTO) 3.7 X10'3 (1.8-7.7); NEUTROPHILS % (AUTO) 64.5 % (42-75); PLATELET COUNT 201 X10'3 (140-440); RED BLOOD COUNT 3.41 X10'6 (4.20-5.60); RED CELL DISTRIBUTION WIDTH 14.2 % (11.5-14.5); WHITE BLOOD COUNT 5.8 X10'3 (4.5-11.0)
[2023-02-28] MEDS ORDERED: MELO-102 PO (11:39)
[2023-02-28] MEDS ORDERED: FAMO20TA79 PO (11:39)
[2023-02-28] MEDS ORDERED: HYDR12.55 PO (11:39)
[2023-02-28] MEDS ORDERED: nitroGLYCERIN 500mcg/5mL D5W 5 ML IV ONE (14:32)
[2023-02-28] MEDS ORDERED: LIDOcaine 1% (10mg/ml)w/preservative inj. 20ml MDV ONE (14:52)
[2023-02-28 15:27] LABS: ISTAT HGB ART 10.9 g/dl (12.0-16.0); ISTAT Hct ART 32 %PCV (35-45); ISTAT O2 SATURATION ARTERIAL 86 % (95-98); ISTAT SOURCE ART
[2023-02-28 15:30] LABS: ISTAT HGB MIX 10.5 g/dl (12.0-16.0); ISTAT Hct MIX 31 %PCV (35-45); ISTAT O2 SATURATION MIX VENOUS 58 % (60-80); ISTAT SOURCE VEN
[2023-02-28] MEDS ORDERED: HYDROcodone/acetaminophen 5mg/325mg tablet PO PRN (16:05)
[2023-02-28] MEDS ORDERED: HYDROcodone/acetaminophen 10/325mg tab PO PRN (16:05)
== END 2023-02-28 17:15 | disposition home or self-care (01) ==
LOC: SSTAY O 10:32
PROVIDERS: ATTEND Student in an Organized Health Care Education/Training Program
DX: I35.0 Nonrheumatic aortic (valve) stenosis (principal); I25.119 Atherosclerotic heart disease of native coronary artery with unspecified angina pectoris; I10 Essential (primary) hypertension; M19.90 Unspecified osteoarthritis, unspecified site; F41.9 Anxiety disorder, unspecified; K21.9 Gastro-esophageal reflux disease without esophagitis; Z88.7 Allergy status to serum and vaccine; Z88.0 Allergy status to penicillin; Z88.1 Allergy status to other antibiotic agents; Z88.8 Allergy status to other drugs, medicaments and biological substances; Z79.01 Long term (current) use of anticoagulants; Z79.899 Other long term (current) drug therapy
CPT/HCPCS: 36415; 80048; 80061; 82803; 85014; 85025; 85610; 85730; 93005; 93456; 99152; J3490; J7030; Q0163; 99153; A6258; A6402; C1751; C1894

== ENCOUNTER 2023-03-03 10:43 | Outpatient (CLI) | payer MEDICARE, BC ==
[~2023-03-03] VITALS: Ht 162.6 cm; Wt 115.7 kg
[~2023-03-03 10:43] MED LIST changes: -ALBU8.5H17 IH; -CEFD300C3 PO; +FAMO20TA79 PO; -FURO-149 PO; +HYDR12.55 PO; -IBUP-24 PO; +LIDOcaine 1% (10mg/ml) 2ml vial ONE; +MELO-102 PO; -METO-395 PO; -ONDA4TAB12 PO; -ONDA4TAB6 PO; -RANI-648 PO; +fentaNYL/PF 50MCG/1 ML 2ML syringe ONE; +heparin 1,000unit/ml 10ml vial 10 ML ONE; +iohexol 350MG/ML 100ml bottle IV ONE; +midazolam 1 mg/ML 2ml injection ONE; +verapamil 2.5 mg/ml inj IV ONE
[2023-03-03 11:21] LABS: BASOPHILS % (AUTO) 0.2 % (0-1); EOSINOPHILS # (AUTO) 0.2 X10'3 (0-0.9); EOSINOPHILS % (AUTO) 3.1 % (0-6); HEMATOCRIT 33.9 % (35.0-45.0); HEMOGLOBIN 11.1 g/dl (12.0-16.0); LYMPHOCYTES % (AUTO) 12.6 % (21-51); MEAN CORPUSCULAR HEMOGLOBIN 29.9 PG (27.0-31.0); MEAN CORPUSCULAR HGB CONC 32.8 g/dL (33.0-36.5); MEAN CORPUSCULAR VOLUME 91.2 FL (78-98); MEAN PLATELET VOLUME 8.5 FL (7.4-10.4); MONOCYTES # (AUTO) 0.6 X10'3 (0-0.9); MONOCYTES % (AUTO) 8.2 % (2-12); NEUTROPHILS # (AUTO) 5.9 X10'3 (1.8-7.7); NEUTROPHILS % (AUTO) 75.9 % (42-75); PLATELET COUNT 235 X10'3 (140-440); RED BLOOD COUNT 3.72 X10'6 (4.20-5.60); RED CELL DISTRIBUTION WIDTH 14.4 % (11.5-14.5); WHITE BLOOD COUNT 7.8 X10'3 (4.5-11.0)
[2023-03-03 11:31] LABS: APTT 29 SECONDS (22-32); PROTHROMBIN TIME 10.6 SECONDS (9.0-12.0)
[2023-03-03 11:39] LABS: ALANINE AMINOTRANSFERASE 19 U/L (12-78); ALBUMIN 3.5 G/DL (3.4-5.0); ALBUMIN/GLOBULIN RATIO 0.9 (1.1-1.5); ALKALINE PHOSPHATASE 96 IU/L (46-116); ANION GAP 7 (8-16); ASPARTATE AMINO TRANSFERASE 19 U/L (10-37); BILIRUBIN,TOTAL 0.7 MG/DL (0.1-1.0); BLOOD UREA NITROGEN 43 MG/DL (7-18); BUN/CREATININE RATIO 40.6 (10.0-20.0); CALCIUM 9.3 MG/DL (8.5-10.1); CHLORIDE 106 MMOL/L (99-107); CREATININE 1.06 MG/DL (0.40-0.90); GLUCOSE 87 MG/DL (70-104); POTASSIUM 4.7 MMOL/L (3.5-5.1); PRO BRAIN NATRIURETIC PEPTIDE 1387 PG/ML (0-125); SODIUM 138 MMOL/L (135-145); TOTAL CARBON DIOXIDE 25.5 MMOL/L (24-32); TOTAL PROTEIN 7.2 G/DL (6.4-8.2); eGFR 51 ML/MIN
[2023-03-03] MEDS ORDERED: IODIXANOL 320 MG/ML INFUS..BTL 100ML IV ONE ×2 (11:41→12:10)
[2023-03-03] MEDS ORDERED: albuterol 2.5 MG/3 ML nebule NEB ONE (13:10)
[2023-03-03 13:41] LABS: ABG BASE EXCESS -4.7 mmol/L (-2.0-2.0); ABG HCO3 20.8 mmol/L (22.0-26.0); ABG OXYGEN SATURATION 95.6 % (94-97); ABG PCO2 (T) 39.8 mmHg (32.0-45.0); ABG PH (T) 7.335 (7.350-7.450); ABG PO2 (T) 78.7 mmHg (75.0-100.0); FCOHb 0.9 % (0.0-3.9); FHHb 4.4 % (0.0-5.0); FO2Hb 94.7 % (94-97); MODE ROOM AIR; TOTAL HEMOGLOBIN 11.4 G/dl (12.0-16.0)
[2023-03-03 13:43] VITALS: PULSE 64; RESP 15; O2SAT 99
== END 2023-03-03 23:59 | disposition home or self-care (01) ==
LOC: RAD 10:43
PROVIDERS: ATTEND Internal Medicine Cardiovascular Disease
DX: K43.9 Ventral hernia without obstruction or gangrene (principal); R94.2 Abnormal results of pulmonary function studies; I35.0 Nonrheumatic aortic (valve) stenosis; R06.02 Shortness of breath; I65.29 Occlusion and stenosis of unspecified carotid artery; I70.0 Atherosclerosis of aorta; M47.814 Spondylosis without myelopathy or radiculopathy, thoracic region; M16.0 Bilateral primary osteoarthritis of hip
CPT/HCPCS: 36415; 36600; 71046; 71275; 74174; 75572; 80053; 82803; 83880; 85018; 85025; 85610; 85730; 94060; 94727; 94729; 94760; J1644; J2250; J3010; J3490; Q9967

== ENCOUNTER 2023-08-24 09:02 | Outpatient (CLI) | payer MEDICARE, BC ==
[~2023-08-24 09:02] MED LIST changes: +ACET-1008 PO; +ASPI-611 PO; -HYDR12.55 PO; -LIDOcaine 1% (10mg/ml) 2ml vial ONE; -MELO-102 PO; +METR-159 PO; +NIFE-128 PO; -fentaNYL/PF 50MCG/1 ML 2ML syringe ONE; -heparin 1,000unit/ml 10ml vial 10 ML ONE; -iohexol 350MG/ML 100ml bottle IV ONE; +metoprolol ER PO; -midazolam 1 mg/ML 2ml injection ONE; -verapamil 2.5 mg/ml inj IV ONE
[2023-08-24 09:57] LABS: BASOPHILS # (AUTO) 0.1 X10'3 (0-0.2); BASOPHILS % (AUTO) 0.7 % (0-1); EOSINOPHILS # (AUTO) 0.2 X10'3 (0-0.9); EOSINOPHILS % (AUTO) 2.6 % (0-6); HEMATOCRIT 29.5 % (35.0-45.0); HEMOGLOBIN 9.6 g/dl (12.0-16.0); LYMPHOCYTES % (AUTO) 11.2 % (21-51); MEAN CORPUSCULAR HEMOGLOBIN 28.7 PG (27.0-31.0); MEAN CORPUSCULAR HGB CONC 32.6 g/dL (33.0-36.5); MEAN CORPUSCULAR VOLUME 88.1 FL (78-98); MEAN PLATELET VOLUME 7.2 FL (7.4-10.4); MONOCYTES # (AUTO) 0.8 X10'3 (0-0.9); MONOCYTES % (AUTO) 8.8 % (2-12); NEUTROPHILS # (AUTO) 7.1 X10'3 (1.8-7.7); NEUTROPHILS % (AUTO) 76.7 % (42-75); PLATELET COUNT 472 X10'3 (140-440); RED BLOOD COUNT 3.35 X10'6 (4.20-5.60); WHITE BLOOD COUNT 9.3 X10'3 (4.5-11.0)
[2023-08-24 09:59] LABS: ALANINE AMINOTRANSFERASE 16 U/L (12-78); ALBUMIN 2.9 G/DL (3.4-5.0); ALBUMIN/GLOBULIN RATIO 0.6 (1.1-1.5); ALKALINE PHOSPHATASE 74 IU/L (46-116); ANION GAP 4 (8-16); ASPARTATE AMINO TRANSFERASE 15 U/L (10-37); BILIRUBIN,TOTAL 0.4 MG/DL (0.1-1.0); BLOOD UREA NITROGEN 32 MG/DL (7-18); BUN/CREATININE RATIO 35.2 (10.0-20.0); CALCIUM 9.2 MG/DL (8.5-10.1); CHLORIDE 108 MMOL/L (99-107); CREATININE 0.91 MG/DL (0.40-0.90); GLUCOSE 89 MG/DL (70-104); POTASSIUM 4.5 MMOL/L (3.5-5.1); SODIUM 137 MMOL/L (135-145); TOTAL CARBON DIOXIDE 25.4 MMOL/L (24-32); TOTAL PROTEIN 7.5 G/DL (6.4-8.2); eGFR 61 ML/MIN
== END 2023-08-24 23:59 | disposition home or self-care (01) ==
LOC: LAB 09:02
PROVIDERS: ATTEND Surgery
DX: R53.83 Other fatigue (principal)
CPT/HCPCS: 36415; 80053; 84145; 85025

== ENCOUNTER 2024-06-11 08:10 | Inpatient (IN) | payer MEDICARE, BC ==
[2024-06-05 15:35] LABS: BASOPHILS % (AUTO) 0.5 % (0-1); EOSINOPHILS # (AUTO) 0.3 X10'3 (0-0.9); EOSINOPHILS % (AUTO) 3.2 % (0-6); LYMPHOCYTES # (AUTO) 1.3 X10'3 (1.1-4.8); LYMPHOCYTES % (AUTO) 14.4 % (21-51); MEAN CORPUSCULAR HEMOGLOBIN 29.9 PG (27.0-31.0); MEAN CORPUSCULAR HGB CONC 33.4 g/dL (33.0-36.5); MEAN CORPUSCULAR VOLUME 89.4 FL (78-98); MONOCYTES # (AUTO) 0.7 X10'3 (0-0.9); MONOCYTES % (AUTO) 8.3 % (2-12); NEUTROPHILS # (AUTO) 6.4 X10'3 (1.8-7.7); NEUTROPHILS % (AUTO) 73.6 % (42-75); PRE OP HEMATOCRIT 35.2 % (35.0-45.0); PRE OP HEMOGLOBIN 11.8 g/dL (12.0-16.0); PRE OP PLATELET COUNT 256 X10'3 (140-440); PRE OP WHITE BLOOD COUNT 8.7 10'3 (4.8-10.8); RED BLOOD COUNT 3.94 X10'6 (4.20-5.60); RED CELL DISTRIBUTION WIDTH 14.4 % (11.5-14.5)
[2024-06-05 15:49] LABS: ALBUMIN 3.5 G/DL (3.4-5.0); ALBUMIN/GLOBULIN RATIO 0.8 (1.1-1.5); ALKALINE PHOSPHATASE 97 IU/L (46-116); BLOOD UREA NITROGEN 33 MG/DL (7-18); BUN/CREATININE RATIO 33.3 (10.0-20.0); CHLORIDE 106 MMOL/L (99-107); CREATININE 0.99 MG/DL (0.40-0.90); PRE OP ALT 21 U/L (30-65); PRE OP ANION GAP 7 (8-16); PRE OP AST 23 U/L (10-37); PRE OP BILIRUB, TOTAL 0.6 MG/DL (0.0-1.0); PRE OP GLUCOSE 109 MG/DL (70-104); PRE OP POTASSIUM 4.8 MMOL/L (3.4-5.1); PRE OP SODIUM 139 MMOL/L (135-145); TOTAL CARBON DIOXIDE 25.6 MMOL/L (24-32); TOTAL PROTEIN 7.7 G/DL (6.4-8.2); eGFR 55 ML/MIN
[~2024-06-11] VITALS: Ht 162.6 cm; Wt 124.7 kg
[2024-06-11] VITALS (24 sets, daily range): BP systolic 115–160; BP diastolic 56–84; PULSE 56–84; RESP 10–19; TEMP 97.9–99.2; O2SAT 94–100
[2024-06-11] MEDS: CEFAZOLIN 3GM/DEXTROSE 150mL 150 ML IV ONE (05:30)
[2024-06-11] MEDS: DOCUMENT DATE & TIME OF BETA-BLOCKER PO ONE (06:00)
[~2024-06-11 08:10] MED LIST changes: -ACET-1008 PO; +AMLO10TA5 PO; +ASPI-1265 PO; -ASPI-611 PO; -FAMO20TA79 PO; -FOSI40TA71 PO; +IRON PO; +LISI40TA13 PO; +MELO-102 PO; +METO-395 PO; -METR-159 PO; -NIFE-128 PO; +VITAMIN C; +VITAMIN D2; -metoprolol ER PO
[2024-06-11] MEDS ORDERED: BUPIVACAINE/MELOXICAM 7 ML VIAL IL ONE ×2 (09:56→12:40)
[2024-06-11] MEDS: VANCOMYCIN 1,500MG inj. 1,500 MG in normal saline 500ml IV soln 300 ML IV ONE (10:11)
[2024-06-11] MEDS: ringers solution, lacted 1,000 ML IV SCH ×2 (10:11→11:00)
[2024-06-11] MEDS: famotidine 20mg tablet PO ONE (10:13)
[2024-06-11] MEDS: tranexamic acid 650mg tablet PO ONE (10:13)
[2024-06-11] MEDS ORDERED: morphine 4 MG/ML inj SYRINge IV PRN (11:00)
[2024-06-11] MEDS ORDERED: ondansetron/PF 4mg/2ml inj IV PRN ×2 (11:00→14:35)
[2024-06-11] MEDS ORDERED: morphine 2 MG/ML inj. syringe IV PRN (11:00)
[2024-06-11] MEDS ORDERED: labetalol 20mg/4ml (5mg/ml) syringe IV PRN (11:00)
[2024-06-11] MEDS ORDERED: proCHLORperazine 10 MG/2 ml inj IV PRN (11:00)
[2024-06-11] MEDS ORDERED: meperidine/PF 25mg/ml syringe IV PRN ×3 (11:00)
[2024-06-11] MEDS ORDERED: enalaprilat 1.25mg/ml 2ml vial IV PRN (11:00)
[2024-06-11] MEDS ORDERED: BUPIVAcaine/dex-water/PF 7.5 mg/ml 2ml ampul ONE (11:55)
[2024-06-11] MEDS ORDERED: fentaNYL/PF 50MCG/1 ML 2ML syringe ONE (12:08)
[2024-06-11] MEDS ORDERED: MIDAZolam 1 MG/ML 5ML VIAL ONE (12:08)
[2024-06-11] MEDS ORDERED: propofol inj 20 ML IV ONE (12:44)
[2024-06-11] MEDS ORDERED: BUPIVAcaine 2.5mg/ml inj 50ml vial (contains preservative) ONE (14:20)
[2024-06-11] MEDS ORDERED: BUPIVACAINE liposomal/PF 13.3 MG/ML 10mL vial IM ONE (14:20)
[2024-06-11] MEDS ORDERED: meperidine/PF 100mg/ml syringe IV PRN (14:22)
[2024-06-11] MEDS ORDERED: acetaminophen 325mg tablet PO PRN (14:35)
[2024-06-11] MEDS ORDERED: diphenhydrAMINE 25mg capsule PO PRN ×2 (14:35)
[2024-06-11] MEDS ORDERED: magnesium hydroxide 30ml (MOM) UD suspension PO PRN (14:35)
[2024-06-11] MEDS ORDERED: oxyCODONE IR 5mg (immed. release) tablet PO PRN (14:35)
[2024-06-11] MEDS ORDERED: naloxone 0.4 mg/ml inj IV PRN (14:35)
[2024-06-11] MEDS ORDERED: HYDROmorphone 1 mg/ml syringe IV PRN (14:35)
[2024-06-11] MEDS ORDERED: bisacodyl 10mg suppository rectal RC PRN (14:35)
[2024-06-11] MEDS: meperidine/PF 100mg/ml syringe IV PRN ×2 (15:10→16:08)
[2024-06-11] MEDS ORDERED: ceFAZolin/D5W- 1GM premix 50 ML IV SCH (16:00)
[2024-06-11] MEDS: potassium cl 20mEq in 1/2 NS 1,000 ML IV SCH (17:48)
[2024-06-11] MEDS: acetaminophen 325mg tablet PO SCH (20:00)
[2024-06-11] MEDS: sennosides 8.6mg tablet PO SCH (21:00)
[2024-06-11] MEDS ORDERED: non-formulary drug (Meloxicam 1 TAB) PO SCH (21:00)
[2024-06-11] MEDS: vancomycin/NS 1 GM ADD-VANTAGE 250 ML IV SCH (21:28)
[2024-06-12] MEDS ORDERED: ceFAZolin/D5W- 1GM premix 50 ML IV SCH
[2024-06-12 02:04] VITALS: BP 145/49; PULSE 67; RESP 16; TEMP 99.2; O2SAT 96
[2024-06-12] MEDS: oxyCODONE IR 5mg (immed. release) tablet PO PRN (02:17)
[2024-06-12] MEDS: HYDROmorphone inj. 0.5 MG/0.5 ML DISP.SYRIN IV PRN (05:17)
[2024-06-12 06:00] VITALS: BP 113/46; PULSE 60; RESP 16; TEMP 98.3; O2SAT 94
[2024-06-12] MEDS ORDERED: ferrous sulfate 325mg tablet PO SCH (08:00)
[2024-06-12] MEDS ORDERED: aspirin 325mg tablet PO SCH (08:30)
[2024-06-12] MEDS: metoprolol succinate 25mg (24-HOUR) SR. Tablet PO SCH (08:40)
[2024-06-12] MEDS: lisinopril 20mg tablet PO SCH (08:47)
[2024-06-12] MEDS: amLODIPine 5mg tablet PO SCH (08:47)
[2024-06-12 09:20] VITALS: RESP 16; O2SAT 94
[2024-06-12 10:00] VITALS: BP 118/43; PULSE 66; RESP 18; TEMP 98.4; O2SAT 97
[2024-06-12] MEDS: aspirin 81mg tab.chew PO SCH (10:00)
[2024-06-12] MEDS ORDERED: celeCOXIB 100mg capsule PO SCH (20:00)
[2024-06-13] MEDS ORDERED: acetaminophen 325mg tablet PO PRN (18:20)
== END 2024-06-12 16:13 | disposition home or self-care (01) | DRG 470 ==
LOC: PAS IN 08:22 → ORTHO 4S 17:20
PROVIDERS: ADMIT Orthopaedic Surgery; ATTEND Orthopaedic Surgery
PROC: 3E0T3BZ Introduction of Anesthetic Agent into Peripheral Nerves and Plexi, Percutaneous Approach (ICD-10-PCS; 2024-06-11)
PROC: 8E0YXBZ Computer Assisted Procedure of Lower Extremity (ICD-10-PCS; 2024-06-11)
PROC: 8E0Y0CZ Robotic Assisted Procedure of Lower Extremity, Open Approach (ICD-10-PCS; 2024-06-11)
PROC: 0SRD0J9 Replacement of Left Knee Joint with Synthetic Substitute, Cemented, Open Approach (ICD-10-PCS; principal; 2024-06-11 11:55)
DX: M17.12 Unilateral primary osteoarthritis, left knee (principal); Z88.1 Allergy status to other antibiotic agents; Z88.0 Allergy status to penicillin; Z88.2 Allergy status to sulfonamides; Z88.8 Allergy status to other drugs, medicaments and biological substances
CPT/HCPCS: 36415; 80053; 82948; 85025; 87081; 97116; 97161; 97530; A4215; A4615; A6449; A7000; C1713; C1776; C9088; G0378; J0666; J1171; J2175; J2250; J2704; J3010; J3370; J3480; J3490; J7040; J7120